=== PATIENT | male | born 1995 | race Two or more races ===

== ENCOUNTER 2019-01-18 04:26 | Emergency (ER) | payer SELFPAY ==
[~2019-01-18] VITALS: Ht 165.1 cm; Wt 63.6 kg
[2019-01-18 04:37] VITALS: BP 131/80
== END 2019-01-18 04:48 ==
LOC: ER 04:28
DX: Z02.89 Encounter for other administrative examinations (principal); V49.9XXA Car occupant (driver) (passenger) injured in unspecified traffic accident, initial encounter; Y93.89 Activity, other specified; Y92.89 Other specified places as the place of occurrence of the external cause; Y99.8 Other external cause status
CPT/HCPCS: 99283